=== PATIENT | male | born 1985 ===

== ENCOUNTER → 2024-11-15 10:20 | Outpatient (BNVA) | payer MEDICAID, SELFPAY | PROVIDERS: PCP Nurse Practitioner; Visit Provider Student in an Organized Health Care Education/Training Program | DX: K46.9 Unspecified abdominal hernia without obstruction or gangrene (principal) | CPT/HCPCS: 99204 ==

== ENCOUNTER 2024-12-18 13:38 | Outpatient (CLI) | payer BC, MEDICAID, SELFPAY ==
--- NOTE | 2024-12-18 13:45 | CT_ITS ---
WS: [id number] CT ABDOMEN AND PELVIS WITH CONTRAST HISTORY: hernia TECHNIQUE: Imaging performed of the abdomen and pelvis with IV contrast. Single phase imaging of the abdomen. Coronal and sagittal reformats are submitted. All CT scans at [facility] use at least one of these dose optimization techniques: automated exposure control; mA and/or kV adjustment per patient size (includes targeted exams where dose is matched to clinical indication); or iterative reconstruction. IV CONTRAST: Omnipaque 350; 100 mL IV. Oral contrast: No DLP: 292.05 mGy.cm COMPARISON: None available. Lower thorax: Lung bases are clear. Heart is normal size. No hiatal hernia. Liver/biliary system: Normal size with no intrahepatic dilatation. Gallbladder: Normal. No gallstones or wall thickening. No pericholecystic fluid. Pancreas: Normal size pancreas and pancreatic duct. No adjacent inflammation. Spleen: Normal size spleen. No mass or infarct. Adrenal glands: Normal. Right kidney: Normal. Left kidney: Normal. Aorta: Normal. Lymphadenopathy: None. Free fluid: None. GI tract: Unremarkable. Abdominal wall: Tiny umbilical hernia containing fat only. Maximum diameter of the orifice is 8 mm. Pelvis: No free fluid or adenopathy within the pelvis. Bones: Unremarkable. CT/CT abdomen pelvis w con* [id number] IMPRESSION: 1. Tiny umbilical hernia contains fat only. Hernia orifice [address] abdomen and pelvis is negative.
[2024-12-18] MEDS: iohexol 350 mg/mL 500 mL Btl (per mL) IV (14:13)
== END 2024-12-18 13:39 | disposition home or self-care (01) ==
PROVIDERS: PCP Nurse Practitioner; Visit Provider Student in an Organized Health Care Education/Training Program
DX: K42.9 Umbilical hernia without obstruction or gangrene (principal)
CPT/HCPCS: 74177

== ENCOUNTER 2025-01-22 05:53 | Day surgery (SDC) | payer BC, MEDICAID, SELFPAY ==
[2025-01-22] VITALS (11 sets, daily range): BP systolic 102–132; BP diastolic 47–80; PULSE 61–93; RESP 17–18; TEMP 36.2–36.5; O2SAT 96–99; BMI 21.9
--- NOTE | 2025-01-22 07:05 | W.PM.OPSFHP ---
Same Day Surgery H&P Indication for Procedure/HPI DATE OF PROCEDURE: January 22, 2025 CHIEF COMPLAINT/INDICATIONFOR SURGICAL PROCEDURE: Symptomatic umbilical hernia PREOP DIAGNOSIS: Umbilical hernia PLANNED PROCEDURE: Operation Date: 01/22/25 08:00 Proposed Procedures p Open Umbilical Hernia Repair w/ Mesh 64289, K42.9(Not Applicable) - Min Ferrera MD Medications/Allergies* Home Medications ?Medication ?Instructions ?Recorded ?Confirmed ?Type No Known Home Medications 11/15/24 01/22/25 History Allergies/Adverse Reactions Allergy/AdvReac Type Severity Reaction Status Date / Time No Known Allergies Allergy Verified 01/22/25 06:15 Pertinent History/Comorbid Conditions* Social History Smoking and tobacco/nicotine status: current every day tobacco/nicotine user (chewing/ smoking) cigarettes [ Other cigarette details: cigaretts and chewing tob] Pertinent Exam Findings alert, oriented x 3, clear to auscultation bilaterally, regular rate & rhythm and procedure specific exam findings Abdomen soft, nt, nd Recommendations Risks and benefits of procedure reviewed Surgery/Procedure today Other Plans: Proceed with open umbilical hernia repair with mesh. Will wait until after 11am since patient drank coffee with cream at 0500. Coding Level of Care Code Acute Code for Chg Fwd
[2025-01-22] MEDS: sodium chloride 0.9% 1,000 ML 30 ML IV (07:24)
--- NOTE | 2025-01-22 10:41 | ANES.PREANE2 ---
Pre-Anesthetic Assessment Height/Weight: Height 5 ft 11 in Weight 157 lb Temp Pulse Resp BP Pulse Ox O2 Del Method 97.7 F 70 17 121/64 99 Room Air 01/22/25 06:20 01/22/25 06:20 01/22/25 06:20 01/22/25 06:20 01/22/25 06:20 01/22/25 06:20 Preop Diagnosis: Umbilical hernia Operation Date: 01/22/25 08:00 Proposed Procedures p Open Umbilical Hernia Repair w/ Mesh 66358, K42.9(Not Applicable) - Min Ferrera MD Was Beta Gissell taken within 24 hours: N/A Was Clonidine taken within 24 hours: N/A Last intake: Intake Last Liquid Date 01/22/25 Last Liquid Time 05:00 Last Solid Date 01/21/25 Last Solid Time 22:00 Social Tobacco and No alcohol Exam alert, oriented x 3, clear to auscultation bilaterally and regular rate & rhythm Airway Submandibular: within normal limits Cervical ROM: within normal limits Mallampati: Class II Dentition: full Anesthetic Plan ASA status: 2 Anesthesia: General Other: No prior issues with anesthesia Patient drink coffee with creamer at 0500 Current smoker, no inhalers Denies any cardiac issue Very active individual METs greater than 4 Plan for GETA Medications/Allergies Home Medications ?Medication ?Instructions ?Recorded ?Confirmed ?Last Taken ?Type No Known Home Medications 11/15/24 01/22/25 Unknown History Allergies Allergy/AdvReac Type Severity Reaction Status Date / Time No Known Allergies Allergy Verified 01/22/25 06:15 Current Medications Generic Name Dose Route Start Last Admin Trade Name Yanna PRN Reason Stop Dose Admin Sodium Chloride 1,000 mls @ 30 mls/hr 01/22/25 06:15 01/22/25 07:24 Sodium Chloride 0.9% IV 01/23/25 06:14 30 mls/hr .Q24H MARLEE Administration PFSH Anesthesia Social History Smoking and tobacco/nicotine status: current every day tobacco/nicotine user (chewing/ smoking) cigarettes [ Other cigarette details: cigaretts and chewing tob] Data Anesthesia Cardiac Studies: No Data to Display
[2025-01-22] MEDS: ceFAZolin 2,000 mg SDV 2000 MG IVP (11:20)
--- NOTE | 2025-01-22 12:00 | P.OP_ITS ---
Operative Report Date of procedure: January 22, 2025 Pre-op diagnosis: Umbilical hernia Post-op diagnosis: same Post-op findings: 1 cm fascial defect at umbilical hernia. Procedure done: Open umbilical hernia repair with mesh Implants: Ventralex ST 4.3 cm mesh Specimens removed/disposition: N/A Pathology: none sent Surgeon: Min Ferrera MD [employer] Worker: N/A Anesthesia: General Estimated blood loss (mL): 10 Complications: N/A Findings: 1 cm fascial defect at umbilical hernia site. Placed a 4.[address] mesh. Closed fascia anterior to mesh. Condition: stable Disposition: same day Brief History: 39-year-old male who presented with an umbilical hernia. Discussed risk and benefits and patient agreed to proceed with open umbilical hernia repair with mesh Procedure: Consent was obtained in the preop area. Patient was transferred to the OR and laid supine. SCDs were on and working. Preoperative antibiotics were administered. General anesthesia was induced. The abdomen was prepped and draped in usual sterile fashion. A 3 cm curvilinear incision at the umbilicus was carried out with a scalpel. Electrocautery was used to dissect down to the fascial layer. Blunt dissection was used to dissect around the hernia defect. Skin was dissected off hernia sac using electrocautery. Hernia contents consisted of fat only and these were reduced into the abdominal cavity. Electrocautery was used to freshen up the fascial edges. A 1 cm fascial defect was found. A 4.[address] mesh was used to repair the fascial defect. The fascia was then closed anterior to the Ventralex ST mesh using continuous 2- 0 Ethibond. The mesh was fixed to the fascia by incorporating the flap with a few bites of the 2-0 Ethibond. Adequate hemostasis was achieved using electrocautery. The umbilicus was recreated using a 2-0 Vicryl by suturing the dermis to the fascia. The deep dermal layer was closed using 3-0 Vicryl. Skin was closed using subcuticular 4-0 Monocryl. Surgical glue was applied. A sterile dressing was applied. The patient will come for anesthesia without any complications.
[2025-01-22] MEDS: lidocaine-epi 1% PF 1:200,000 30 mL SDV INJECTION (12:01)
[2025-01-22] MEDS: oxyCODONE 5 mg IR Tab/Cap PO (13:11)
--- NOTE | 2025-01-22 13:27 | ANE.PACU2 ---
Inpatient post-anesthesia follow up: Airway intact: Yes Vital signs: Temperature 97.6 F Pulse Rate 70 Respiratory Rate 17 Blood Pressure 119/59 Pulse Oximetry 98 Oxygen Delivery Me thod Room Air Oxygen Flow Rate Fraction of Inspir ed Oxygen Hydration adequate: Yes Nausea and vomiting: No Pain level: 1 Mental status: Baseline
== END 2025-01-22 13:27 | disposition home or self-care (01) ==
PROVIDERS: PCP Nurse Practitioner; Visit Provider Student in an Organized Health Care Education/Training Program
PROC: (CPT 49591; principal; 2025-01-22 07:50)
DX: K42.9 Umbilical hernia without obstruction or gangrene (principal); F17.210 Nicotine dependence, cigarettes, uncomplicated; F17.220 Nicotine dependence, chewing tobacco, uncomplicated
CPT/HCPCS: 49591; C1781; J0330; J0690; J1100; J1885; J2250; J2405; J2704; J3010; J3490; J7030; J9999